=== PATIENT | female | born 1995 | race African-American/Black ===

== ENCOUNTER 2019-09-15 00:25 | Emergency (ER) | payer SELFPAY ==
[~2019-09-15] VITALS: Ht 172.7 cm; Wt 104.3 kg
[2019-09-15 00:30] VITALS: BP_SYST 125
--- NOTE | 2019-09-15 00:30 | NUR ---
Patient triaged and placed in waiting room. VSS and patient appears in no acute distress at this time. Accompanied by FAM MEMBER, awaiting available bed, and MD notified of need for MSE.
[2019-09-15] MEDS ORDERED: ACETAMINOPHEN 325 MG TABLET ONE (01:07)
[2019-09-15 01:26] LABS: HEMATOCRIT 39.5 % (36-48); HEMOGLOBIN 13.8 g/dL (12.0-16.0); LYMPHOCYTES % (AUTO) 8.4 % (20.5-51.5); MEAN CORPUSCULAR HEMOGLOBIN 33 pg (27-31); MEAN CORPUSCULAR HGB CONC 35 % (32-36); MEAN CORPUSCULAR VOLUME 95 fL (79.0-98.0); NEUTROPHILS % (AUTO) 79.7 % (40.0-70.0); PLATELET COUNT (AUTO) 317 K/uL (130-430); RED BLOOD CELL COUNT(AUTO) 4.14 MIL/uL (4.2-6.2); RED CELL DISTRIBUTION WIDTH 12.7 % (9.0-15.0)
[2019-09-15 01:27] LABS: BASOPHILS % (AUTO) 0.2 % (0.0-2.0); LYMPHOCYTES # (AUTO) 0.9 K/uL (1.0-5.5); MONOCYTES # (AUTO) 1.3 K/uL (0.0-1.0); MONOCYTES % (AUTO) 11.7 % (1.7-9.3); NEUTROPHILS # (AUTO) 8.8 K/uL (1.8-7.7)
[2019-09-15 01:34] LABS: INFLUENZA A&B ANTIGEN SCREEN NEGATIVE FOR A & B (NEGATIVE); STREPTOCOCCUS A SCREEN (RAPID) NEGATIVE (NEGATIVE)
[2019-09-15 01:42] LABS: CREATININE 1.08 mg/dL (0.55-1.30); POTASSIUM 3.9 mmol/L (3.5-5.1)
--- NOTE | 2019-09-15 01:43 | NUR ---
Patient to ER bed 7 to gown for evaluation. Side rails up. Report given to CONNOR DOMINGUEZ.
[2019-09-15 01:48] LABS: ALBUMIN 3.8 g/dL (3.4-4.8); TOTAL BILIRUBIN 0.9 mg/dL (0.0-1.0)
--- NOTE | 2019-09-15 01:48 | NUR ---
patient arrived aox4 from home with c/o flu like symptoms x 1 day. patient states she has generalized weakness, and aches and pains. patient denies n/v or fever. no other complaint or injury at this time.
--- NOTE | 2019-09-15 01:50 | NUR ---
patient laughing and faning self with friends. patient in no current sign of distress.
--- NOTE | 2019-09-15 01:55 | NUR ---
ER at bedside examining patient.
[2019-09-15 01:59] LABS: BILIRUBIN,URINE NEGATIVE (NEGATIVE); BLOOD, URINE 2+ (NEGATIVE); CLARITY/URINE CLEAR (CLEAR); COLOR,URINE YELLOW (YELLOW); GLUCOSE,URINE NEGATIVE (NEGATIVE); KETONES,URINE 1+ (NEGATIVE); LEUKOCYTE ESTERASE ,URINE 1+ (NEGATIVE); NITRITE, URINE NEGATIVE (NEGATIVE); PH,URINE 5.5 (5.0-8.0); PROTEIN URINE TRACE (NEGATIVE); UROBILINOGEN,URINE 0.2 (0.2-1.0)
[2019-09-15 02:08] LABS: BACTERIA,URINE MANY /HPF (None Seen)
[2019-09-15] MEDS ORDERED: CEPHALEXIN 500 MG CAPSULE PO ONE (03:00)
--- NOTE | 2019-09-15 03:00 | NUR ---
Patient given written and verbal discharge instructions and verbalizes understanding. ER MD discussed with patient the results and treatment provided. Patient in stable condition. ID arm band removed. Rx of keflex given. Patient educated on pain management and to follow up with PMD. Pain Scale 5/10. Opportunity for questions provided and answered. Medication side effect fact sheet provided.
[2019-09-15 03:04] VITALS: BP_SYST 129
== END 2019-09-15 03:00 | disposition home or self-care (01) ==
LOC: SED 00:25
DX: N39.0 Urinary tract infection, site not specified (principal); J45.909 Unspecified asthma, uncomplicated
CPT/HCPCS: 36415; 80053; 81000-TC; 81025; 85025; 86403; 86710; 87081; 87086; 99283